=== PATIENT | male | born 1990 | race Hispanic/Latino ===

== ENCOUNTER 2021-10-01 00:15 | Emergency (ER) | payer BC, SELFPAY ==
[2021-10-01] MEDS ORDERED: LIDOCAINE 1% MPF 5 ML VIAL ONE (01:09)
[2021-10-01] MEDS ORDERED: TETANUS & DIPHTHERIA TOX,ADULT 0.5 ML VIAL ONE (01:19)
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
[2021-10-01 02:53] VITALS: BP 122/86; TEMP 97.6; O2SAT 98
== END 2021-10-01 02:48 | disposition home or self-care (01) ==
LOC: ER 00:15
PROC: 0CQ0XZZ Repair Upper Lip, External Approach (ICD-10-PCS; principal; 2021-10-01)
DX: S01.511A Laceration without foreign body of lip, initial encounter (principal)
CPT/HCPCS: 90471; 90714; 99283